=== PATIENT | male | born 1995 ===

== ENCOUNTER 2019-02-17 11:00 | Observation (INO) | payer OTHER ==
[2019-02-17 11:14] VITALS: BMI 28.8
[2019-02-17] MEDS: Sodium Chloride 0.9% 1,000 ML IV SCH ×5 (12:30→23:35)
[2019-02-17 12:35] LABS: HEMOGLOBIN 16.4 g/dL (12.0-18.0); MEAN CELL VOLUME 88.7 fl (80.0-94.0); MEAN CORPUSCULAR HEMOGLOBIN 29.5 pg (27.0-31.0); MEAN CORPUSCULAR HGB CONC 33.2 g/dL (33.0-37.0); RBC 5.55 Mil/uL (4.40-5.90); RED CELL DISTRIBUTION WIDTH 13.4 % (11.5-14.5); WHITE BLOOD COUNT 7.6 K/uL (4.8-10.8)
[2019-02-17 12:55] LABS: ALB/GLOB RATIO 1.6 (1.0-2.1); ALT/SGPT 47 U/L (21-72); AST/SGOT 100 U/L (17-59); BLOOD UREA NITROGEN 11 mg/dl (9-20); CALCIUM 9.3 mg/dL (8.4-10.2); GFR NON-AFRICAN AMERICAN > 60
[2019-02-17 13:47] LABS: URINE BILIRUBIN NEGATIVE (NEGATIVE); URINE BLOOD NEGATIVE (NEGATIVE); URINE CLARITY CLEAR (Clear); URINE COLOR YELLOW (YELLOW); URINE GLUCOSE (UA) NEG (NEGATIVE); URINE LEUKOCYTE ESTERASE NEG Leu/uL (Negative); URINE PROTEIN NEGATIVE (NEGATIVE); URINE UROBILINOGEN 0.2-1.0 mg/dL (0.2-1.0)
--- NOTE | 2019-02-17 14:12 | ED PDOC ---
HPI: General Adult Time Seen by Provider: 02/17/19 11:49 Chief Complaint (Nursing): Flu-like Symptoms Chief Complaint (Provider): Dehydration History Per: Patient History/Exam Limitations: no limitations Onset/Duration Of Symptoms: Days Current Symptoms Are (Timing): Still Present Additional Complaint(s): 23 yo healthy M reports feeling dehydrated for the last 3 days. He states he woke up this morning with diffuse body aches, joint pain, dry mouth, nausea and one episode of vomiting. He states he has felt like this fro 3 days and was drinking lots of water and pedialyte. He has a decrease appetite and feels like he is urinating less. Pt reports he does work out daily, he runs, swims and lifts weight, which he has continued to do the last few days. Pt denies fever, chills, recent travel, URI symptoms, urinary frequency or hematuria, changes in urine color, abdominal pain. PMD: none Past Medical History Reviewed: Historical Data, Nursing Documentation, Vital Signs Vital Signs: Last Vital Signs Temp 97.7 F 02/17/19 11:13 Pulse 70 02/17/19 11:13 Resp 18 02/17/19 11:13 BP 137/83 02/17/19 11:13 Pulse Ox 97 02/17/19 11:13 - Medical History PMH: No Chronic Diseases - Family History Family History: States: No Known Family Hx - Immunization History Hx Tetanus Toxoid Vaccination: No Hx Influenza Vaccination: No Hx Pneumococcal Vaccination: No - Home Medications Home Medications: Ambulatory Orders Medication Instructions Recorded Levocarnitine Tartrate 1 cap PO DAILY 02/17/19 [l-Carnitine] - Allergies Allergies/Adverse Reactions: Allergies Allergy/AdvReac Type Severity Reaction Status Date / Time No Known Allergies Allergy Verified 02/17/19 12:06 Review of Systems Constitutional: Negative for: Fever Respiratory: Negative for: Cough, Shortness of Breath Gastrointestinal: Positive for: Nausea, Vomiting. Negative for: Abdominal Pain Genitourinary Male: Negative for: Dysuria, Frequency, Hematuria Musculoskeletal: Positive for: Other (diffuse body aches) Physical Exam - Reviewed Nursing Documentation Reviewed: Yes Vital Signs Reviewed: Yes - Physical Exam Comments: GENERAL APPEARANCE: Patient is awake, alert, oriented x 3, in no obvious distress. SKIN: Warm, dry; (-) cyanosis. EYES: (-) conjunctival pallor, (-) scleral icterus. ENMT: Mucous membranes moist. NECK: (-) tenderness, (-) stiffness, (-) lymphadenopathy. CHEST AND RESPIRATORY: (-) rales, (-) rhonchi, (-) wheezes; breath sounds equal bilaterally. HEART AND CARDIOVASCULAR: (-) irregularity; (-) murmur, (-) gallop. ABDOMEN AND GI: (-) distention. Bowel sounds active; (-) tendernes. (-) guarding, (-) rebound, (-) palpable masses, (-) CVA tenderness. EXTREMITIES: (-) deformity, (-) edema, (+) distal pulses. (+) diffuse reproducible tenderness to upper and lower extremities NEURO AND PSYCH: Mental status as above; (-) focal findings. - Laboratory Results Result Diagrams: 02/17/19 12:23 02/17/19 12:23 Lab Results: Total Bilirubin 0.5 mg/dl (0.2-1.3) 02/17/19 12:23 AST 100 U/L (17-59) H 02/17/19 12:23 ALT 47 U/L (21-72) 02/17/19 12:23 Alkaline Phosphatase 82 U/L (38-126) 02/17/19 12:23 Total Protein 8.1 G/DL (6.3-8.2) 02/17/19 12:23 Albumin 5.0 g/dL (3.5-5.0) 02/17/19 12:23 Globulin 3.1 gm/dL (2.2-3.9) 02/17/19 12:23 Albumin/Globulin Ratio 1.6 (1.0-2.1) 02/17/19 12:23 Urine Color Yellow (YELLOW) 02/17/19 13:36 Urine Clarity Clear (Clear) 02/17/19 13:36 Urine pH 7.0 (5.0-8.0) 02/17/19 13:36 Ur Specific [place] 1.014 (1.003-1.030) 02/17/19 13:36 Urine Protein Negative mg/dL (NEGATIVE) 02/17/19 13:36 Urine Glucose (UA) Neg mg/dL (NEGATIVE) 02/17/19 13:36 Urine Ketones Negative mg/dL (NEGATIVE) 02/17/19 13:36 Urine Blood Negative (NEGATIVE) 02/17/19 13:36 Urine Nitrate Negative (NEGATIVE) 02/17/19 13:36 Urine Bilirubin Negative (NEGATIVE) 02/17/19 13:36 Urine Urobilinogen 0.2-1.0 mg/dL (0.2-1.0) 02/17/19 13:36 Ur Leukocyte Esterase Neg Rikki/uL (Negative) 02/17/19 13:36 Urine RBC (Auto) 2 /hpf (0-3) 02/17/19 13:36 Urine Microscopic WBC 1 /hpf (0-5) 02/17/19 13:36 - ECG O2 Sat by Pulse Oximetry: 97 Medical Decision Making Medical Decision Makin:55 initial impression 23 yo M with dehydration or rhabdo due to exercise -- labs, including CPK -- IVF -- UA -- Re eval 14:00 pts CPK is elevated to 6,300, likely rhabdomylosis, will continue with IVF and admit for observation pt reports feeling mildly better, nausea is gone and pt is now hungry 14:27 spoke to hospitalist, Dr. Jimenez who accepts pt for continued IVF Discussed results, diagnosis, treatment and plan for observation with pt who is understanding and in agreement Disposition - Clinical Impression Clinical Impression: Rhabdomyolysis - Patient ED Disposition Is Patient to be Admitted: Yes Discussed With : Alyson Jimenez Doctor Will See Patient In The: ED Counseled Patient/Family Regarding: Studies Performed, Diagnosis, Need For Followup - Disposition Disposition Time: 14:30 Condition: STABLE - Pt Status Changed To: Hospital Disposition Of: Observation - POA Present On Arrival: None
--- NOTE | 2019-02-17 14:48 | CP.PCM.HP ---
<Yessica Christine - Last Filed: 02/17/19 15:23> History of Present Illness - History of Present Illness History of Present Illness: Pt is a 23 yo M with no pmh presented to the ED due to muscle aches, dizziness and nausea after a high intensity workout (crossfit and weightlifting) on Sunday. He vomited 15 mins after the workout, he had limited water intake. Sunday he started to have muscle pain, dizziness and nausea. Today his muscle pain progressed to now 6/10 worse with movement, he feels dehydrated, reports B/L knee pain and nausea. Denies fever, chills, chest pain, SOB, hematuria or dysuria. Tolerating oral intake. PMD: none reported Code Status: Full code PMHx: Denies Meds: none Allergies: NKDA Surg hx: Denies Hosp hx: Denies Family hx: Denies Social hx: Alcohol occasionally- last month 4 beers, Joseph tobacco or drug use ED Course: CPK level 6326, U/A- WNL, BUN 11 CR 0.6, IVF's Present on Admission - Present on Admission Any Indicators Present on Admission: No History of DVT/PE: No History of Uncontrolled Diabetes: No Urinary Catheter: No Decubitus Ulcer Present: No Review of Systems - Gastrointestinal Gastrointestinal: Nausea - Musculoskeletal Additional comments: Muscle pain - Neurological Neurological: Dizziness Past Patient History - Past Social History Smoking Status: Never Smoked Alcohol: Occasional (4 beers 1 month ago) Drugs: Denies - PSYCHIATRIC Hx Substance Use: No - ANESTHESIA Hx Anesthesia: No Meds Allergies/Adverse Reactions: Allergies Allergy/AdvReac Type Severity Reaction Status Date / Time No Known Allergies Allergy Verified 02/17/19 12:06 Physical Exam - Constitutional Appears: Non-toxic, No Acute Distress - Head Exam Head Exam: ATRAUMATIC, NORMAL INSPECTION, NORMOCEPHALIC - Eye Exam Eye Exam: EOMI - ENT Exam ENT Exam: Mucous Membranes Moist - Respiratory Exam Respiratory Exam: Clear to Auscultation Bilateral. absent: Rales, Rhonchi, Wheezes - Cardiovascular Exam Cardiovascular Exam: RRR, +S1, +S2 - GI/Abdominal Exam GI & Abdominal Exam: Normal Bowel Sounds, Soft. absent: Tenderness - Extremities Exam Additional comments: Painful but full ROM of upper and lower extremities. Tenderness to palpation of bicep, triceps, thigh muscles. - Neurological Exam Neurological exam: Alert, Oriented x3 Additional comments: Strength and sensation 5/5 UE and LE Results - Vital Signs Recent Vital Signs: Last Vital Signs Temp 97.7 F 02/17/19 11:13 Pulse 70 02/17/19 11:13 Resp 18 02/17/19 11:13 BP 137/83 02/17/19 11:13 Pulse Ox 97 02/17/19 14:27 - Labs Result Diagrams: 02/17/19 12:23 02/17/19 12:23 Labs: Laboratory Results - last 24 hr 02/17/19 02/17/19 02/17/19 12:23 12:23 13:36 WBC 7.6 RBC 5.55 Hgb 16.4 Hct 49.2 MCV 88.7 MCH 29.5 MCHC 33.2 RDW 13.4 Plt Count 240 Sodium 140 Potassium 3.9 Chloride 100 Carbon Dioxide 28 Anion Gap 16 BUN 11 Creatinine 0.6 L Est GFR ( Amer) > 60 Est GFR (Non-Af Amer) > 60 Random Glucose 101 Calcium 9.3 Total Bilirubin 0.5 AST 100 H ALT 47 Alkaline Phosphatase 82 Total Creatine Kinase 6326 H Total Protein 8.1 Albumin 5.0 Globulin 3.1 Albumin/Globulin Ratio 1.6 Urine Color Yellow Urine Clarity Clear Urine pH 7.0 Ur Specific [place] 1.014 Urine Protein Negative Urine Glucose (UA) Neg Urine Ketones Negative Urine Blood Negative Urine Nitrate Negative Urine Bilirubin Negative Urine Urobilinogen 0.2-1.0 Ur Leukocyte Esterase Neg Urine RBC (Auto) 2 Urine Microscopic WBC 1 Assessment & Plan - Assessment and Plan (Free Text) Assessment: Pt is a 23 yo M with no pmh presented to the ED due to muscle aches, dizziness and nausea after a high intensity workout admitted due to Rhabdomyolysis Rhabdomyolysis Observation Medsurg CPK 6326 on admission BUN/CR 11/0.6 U/A WNL IVFs NS @ 250cc/hr Pain control- ibuprofen, zofran Continue to monitor F/u CPK, CBC, CMP in AM Diet Regular DVT PPX SCD <Kaylee Loyd - Last Filed: 02/17/19 16:21> Results - Vital Signs Recent Vital Signs: Last Vital Signs Temp 97.7 F 02/17/19 11:13 Pulse 70 02/17/19 11:13 Resp 18 02/17/19 11:13 BP 137/83 02/17/19 11:13 Pulse Ox 97 02/17/19 14:27 - Labs Result Diagrams: 02/17/19 12:23 02/17/19 12:23 Labs: Laboratory Results - last 24 hr 02/17/19 02/17/19 02/17/19 12:23 12:23 13:36 WBC 7.6 RBC 5.55 Hgb 16.4 Hct 49.2 MCV 88.7 MCH 29.5 MCHC 33.2 RDW 13.4 Plt Count 240 Sodium 140 Potassium 3.9 Chloride 100 Carbon Dioxide 28 Anion Gap 16 BUN 11 Creatinine 0.6 L Est GFR ( Amer) > 60 Est GFR (Non-Af Amer) > 60 Random Glucose 101 Calcium 9.3 Total Bilirubin 0.5 AST 100 H ALT 47 Alkaline Phosphatase 82 Total Creatine Kinase 6326 H Total Protein 8.1 Albumin 5.0 Globulin 3.1 Albumin/Globulin Ratio 1.6 Urine Color Yellow Urine Clarity Clear Urine pH 7.0 Ur Specific [place] 1.014 Urine Protein Negative Urine Glucose (UA) Neg Urine Ketones Negative Urine Blood Negative Urine Nitrate Negative Urine Bilirubin Negative Urine Urobilinogen 0.2-1.0 Ur Leukocyte Esterase Neg Urine RBC (Auto) 2 Urine Microscopic WBC 1 Attending/Attestation - Attestation I have personally seen and examined this patient.: Yes I have fully participated in the care of the patient.: Yes I have reviewed all pertinent clinical information: Yes Notes (Text): Rhabdomyolysis - Pt came bec of pain with movement after intensive workout, denies any other sxs, no hematuria - CPK elevated to 6k - will observe the patient overnight -Aggressive IVF hydration -rpt CPK and BMP in am
[2019-02-18] MEDS: Sodium Chloride 0.9% 1,000 ML IV SCH ×2 (03:14→06:48)
[2019-02-18 06:30] LABS: BASO % 0.3 % (0.0-2.0); EOS # 0.1 K/uL (0.0-0.7); EOS % 1.2 % (0.0-4.0); HEMOGLOBIN 14.3 g/dL (12.0-18.0); LYMPH # 2.7 K/uL (1.0-4.3); LYMPH % 34.9 % (20.0-40.0); MEAN CELL VOLUME 88.9 fl (80.0-94.0); MEAN CORPUSCULAR HEMOGLOBIN 29.3 pg (27.0-31.0); MEAN CORPUSCULAR HGB CONC 32.9 g/dL (33.0-37.0); MEAN PLATELET VOLUME 8.8 fl (7.2-11.7); MONO # 0.6 K/uL (0.0-0.8); MONO % 7.4 % (0.0-10.0); NEUT # 4.4 K/uL (1.8-7.0); NEUT % 56.2 % (50.0-75.0); NRBC % 0.2 % (0.0-0.0); RBC 4.87 Mil/uL (4.40-5.90); RED CELL DISTRIBUTION WIDTH 13.6 % (11.5-14.5); WHITE BLOOD COUNT 7.8 K/uL (4.8-10.8)
[2019-02-18 06:48] LABS: ALB/GLOB RATIO 1.5 (1.0-2.1); ALBUMIN 3.8 g/dL (3.5-5.0); ALT/SGPT 45 U/L (21-72); AST/SGOT 91 U/L (17-59); BLOOD UREA NITROGEN 9 mg/dl (9-20); CALCIUM 8.6 mg/dL (8.4-10.2); GFR NON-AFRICAN AMERICAN > 60
[2019-02-18 07:57] VITALS: BP 135/73; PULSE 77; RESP 18; TEMP 98.1; O2SAT 94
--- NOTE | 2019-02-18 07:59 | CP.PCM.PN ---
Objective - Vital Signs/Intake and Output Vital Signs (last 24 hours): Temp Pulse Resp BP Pulse Ox 98.1 F 77 18 135/73 94 L 02/18/19 07:55 02/18/19 07:55 02/18/19 07:55 02/18/19 07:55 02/18/19 07:55 - Medications Medications: Current Medications Sodium Chloride (Sodium Chloride 0.9%) 1,000 mls @ 250 mls/hr IV .Q4H MYLENE Last Admin: 02/18/19 06:48 Dose: 250 mls/hr Ibuprofen (Motrin Tab) 600 mg PO Q6 PRN PRN Reason: Pain, moderate (4-7) - Labs Labs: 02/18/19 06:10 02/18/19 06:10
--- NOTE | 2019-02-18 08:07 | CP.PCM.DIS ---
<JaimesarahYessica - Last Filed: 02/18/19 10:03> Provider - Provider Date of Admission: 02/17/19 14:32 Attending physician: Alyson Jimenez MD Primary care physician: None Time Spent in preparation of Discharge (in minutes): 10 Diagnosis - Discharge Diagnosis (1) Rhabdomyolysis Status: Acute Comment: Acute, resolving, no muscle pain. BUN/CR stable. CK trending down now 5615 from 6326. Keep hydrated. F/u with [facility] in 1 week for repeat CK and Renal fxn labs Hospital Course - Lab Results Lab Results: Most Recent Lab Values WBC 7.8 K/uL (4.8-10.8) 02/18/19 06:10 RBC 4.87 Mil/uL (4.40-5.90) 02/18/19 06:10 Hgb 14.3 g/dL (12.0-18.0) D 02/18/19 06:10 Hct 43.3 % (35.0-51.0) 02/18/19 06:10 MCV 88.9 fl (80.0-94.0) 02/18/19 06:10 MCH 29.3 pg (27.0-31.0) 02/18/19 06:10 MCHC 32.9 g/dL (33.0-37.0) L 02/18/19 06:10 RDW 13.6 % (11.5-14.5) 02/18/19 06:10 Plt Count 226 K/uL (130-400) 02/18/19 06:10 MPV 8.8 fl (7.2-11.7) 02/18/19 06:10 Neut % (Auto) 56.2 % (50.0-75.0) 02/18/19 06:10 Lymph % (Auto) 34.9 % (20.0-40.0) 02/18/19 06:10 [place] % (Auto) 7.4 % (0.0-10.0) 02/18/19 06:10 Eos % (Auto) 1.2 % (0.0-4.0) 02/18/19 06:10 Baso % (Auto) 0.3 % (0.0-2.0) 02/18/19 06:10 Neut # (Auto) 4.4 K/uL (1.8-7.0) 02/18/19 06:10 Lymph # (Auto) 2.7 K/uL (1.0-4.3) 02/18/19 06:10 [place] # (Auto) 0.6 K/uL (0.0-0.8) 02/18/19 06:10 Eos # (Auto) 0.1 K/uL (0.0-0.7) 02/18/19 06:10 Baso # (Auto) 0.0 K/uL (0.0-0.2) 02/18/19 06:10 Sodium 138 mmol/l (132-148) 02/18/19 06:10 Potassium 3.9 MMOL/L (3.6-5.0) 02/18/19 06:10 Chloride 104 mmol/L (98-107) 02/18/19 06:10 Carbon Dioxide 29 mmol/L (22-30) 02/18/19 06:10 Anion Gap 9 (10-20) L 02/18/19 06:10 BUN 9 mg/dl (9-20) 02/18/19 06:10 Creatinine 0.7 mg/dl (0.8-1.5) L 02/18/19 06:10 Est GFR ( Amer) > 60 02/18/19 06:10 Est GFR (Non-Af Amer) > 60 02/18/19 06:10 Random Glucose 89 mg/dL (75-110) 02/18/19 06:10 Calcium 8.6 mg/dL (8.4-10.2) 02/18/19 06:10 Total Bilirubin 0.4 mg/dl (0.2-1.3) 02/18/19 06:10 AST 91 U/L (17-59) H 02/18/19 06:10 ALT 45 U/L (21-72) 02/18/19 06:10 Alkaline Phosphatase 65 U/L (38-126) 02/18/19 06:10 Total Creatine Kinase 5615 U/L (55-170) H 02/18/19 06:10 Total Protein 6.3 G/DL (6.3-8.2) 02/18/19 06:10 Albumin 3.8 g/dL (3.5-5.0) 02/18/19 06:10 Globulin 2.5 gm/dL (2.2-3.9) 02/18/19 06:10 Albumin/Globulin Ratio 1.5 (1.0-2.1) 02/18/19 06:10 Urine Color Yellow (YELLOW) 02/17/19 13:36 Urine Clarity Clear (Clear) 02/17/19 13:36 Urine pH 7.0 (5.0-8.0) 02/17/19 13:36 Ur Specific [place] 1.014 (1.003-1.030) 02/17/19 13:36 Urine Protein Negative mg/dL (NEGATIVE) 02/17/19 13:36 Urine Glucose (UA) Neg mg/dL (NEGATIVE) 02/17/19 13:36 Urine Ketones Negative mg/dL (NEGATIVE) 02/17/19 13:36 Urine Blood Negative (NEGATIVE) 02/17/19 13:36 Urine Nitrate Negative (NEGATIVE) 02/17/19 13:36 Urine Bilirubin Negative (NEGATIVE) 02/17/19 13:36 Urine Urobilinogen 0.2-1.0 mg/dL (0.2-1.0) 02/17/19 13:36 Ur Leukocyte Esterase Neg Rikki/uL (Negative) 02/17/19 13:36 Urine RBC (Auto) 2 /hpf (0-3) 02/17/19 13:36 Urine Microscopic WBC 1 /hpf (0-5) 02/17/19 13:36 - Hospital Course Hospital Course: Pt is a 23 yo M with no pmh presented to the ED due to muscle aches, dizziness and nausea after a high intensity workout (crossfit and weightlifting) on 02/15/19. He vomited 15 mins after the workout, he had limited water intake. 02/16/19 he started to have muscle pain, dizziness and nausea. ED Course: CPK level 6326, U/A- WNL, BUN 11 CR 0.6, IVF's. AST 100/ ALT 47- possibly 2/2 to alcohol pt reported no alcohol intake for 1 month prior, trending down today, AST 91, ALT 45. Today pt reports his muscle pain has resolved completely, hemodynamically stable, Renal function stable, CPK 5615. Tolerating oral intake. Pt is stable for discharge, instructed to keep well hydrated, and to follow up outpt at the [facility] in 1 week to get a repeat CPK level and renal labs. Discharge Exam - Head Exam Head Exam: ATRAUMATIC, NORMAL INSPECTION, NORMOCEPHALIC - ENT Exam ENT Exam: Mucous Membranes Moist - Respiratory Exam Respiratory Exam: Clear to PA & Lateral. absent: Rales, Rhonchi, Wheezes - Cardiovascular Exam Cardiovascular Exam: RRR, +S1, +S2 - GI/Abdominal Exam GI & Abdominal Exam: Normal Bowel Sounds, Soft. absent: Tenderness - Extremities Exam Extremities exam: full ROM, normal inspection - Neurological Exam Neurological exam: Alert, Oriented x3 Discharge Plan - Follow Up Plan Condition: STABLE Disposition: HOME/ ROUTINE Instructions: Rhabdomyolysis (DC) Additional Instructions: follow up with your primary MD 1 week emailed Maria Alejandra to call pt Referrals: [facility] [Outside] <Kaylee Loyd - Last Filed: 02/18/19 13:46> Provider - Provider Date of Admission: 02/17/19 14:32 Attending physician: Alyson Jimenez MD Hospital Course - Lab Results Lab Results: Most Recent Lab Values WBC 7.8 K/uL (4.8-10.8) 02/18/19 06:10 RBC 4.87 Mil/uL (4.40-5.90) 02/18/19 06:10 Hgb 14.3 g/dL (12.0-18.0) D 02/18/19 06:10 Hct 43.3 % (35.0-51.0) 02/18/19 06:10 MCV 88.9 fl (80.0-94.0) 02/18/19 06:10 MCH 29.3 pg (27.0-31.0) 02/18/19 06:10 MCHC 32.9 g/dL (33.0-37.0) L 02/18/19 06:10 RDW 13.6 % (11.5-14.5) 02/18/19 06:10 Plt Count 226 K/uL (130-400) 02/18/19 06:10 MPV 8.8 fl (7.2-11.7) 02/18/19 06:10 Neut % (Auto) 56.2 % (50.0-75.0) 02/18/19 06:10 Lymph % (Auto) 34.9 % (20.0-40.0) 02/18/19 06:10 [place] % (Auto) 7.4 % (0.0-10.0) 02/18/19 06:10 Eos % (Auto) 1.2 % (0.0-4.0) 02/18/19 06:10 Baso % (Auto) 0.3 % (0.0-2.0) 02/18/19 06:10 Neut # (Auto) 4.4 K/uL (1.8-7.0) 02/18/19 06:10 Lymph # (Auto) 2.7 K/uL (1.0-4.3) 02/18/19 06:10 [place] # (Auto) 0.6 K/uL (0.0-0.8) 02/18/19 06:10 Eos # (Auto) 0.1 K/uL (0.0-0.7) 02/18/19 06:10 Baso # (Auto) 0.0 K/uL (0.0-0.2) 02/18/19 06:10 Sodium 138 mmol/l (132-148) 02/18/19 06:10 Potassium 3.9 MMOL/L (3.6-5.0) 02/18/19 06:10 Chloride 104 mmol/L (98-107) 02/18/19 06:10 Carbon Dioxide 29 mmol/L (22-30) 02/18/19 06:10 Anion Gap 9 (10-20) L 02/18/19 06:10 BUN 9 mg/dl (9-20) 02/18/19 06:10 Creatinine 0.7 mg/dl (0.8-1.5) L 02/18/19 06:10 Est GFR ( Amer) > 60 02/18/19 06:10 Est GFR (Non-Af Amer) > 60 02/18/19 06:10 Random Glucose 89 mg/dL (75-110) 02/18/19 06:10 Calcium 8.6 mg/dL (8.4-10.2) 02/18/19 06:10 Total Bilirubin 0.4 mg/dl (0.2-1.3) 02/18/19 06:10 AST 91 U/L (17-59) H 02/18/19 06:10 ALT 45 U/L (21-72) 02/18/19 06:10 Alkaline Phosphatase 65 U/L (38-126) 02/18/19 06:10 Total Creatine Kinase 5615 U/L (55-170) H 02/18/19 06:10 Total Protein 6.3 G/DL (6.3-8.2) 02/18/19 06:10 Albumin 3.8 g/dL (3.5-5.0) 02/18/19 06:10 Globulin 2.5 gm/dL (2.2-3.9) 02/18/19 06:10 Albumin/Globulin Ratio 1.5 (1.0-2.1) 02/18/19 06:10 Urine Color Yellow (YELLOW) 02/17/19 13:36 Urine Clarity Clear (Clear) 02/17/19 13:36 Urine pH 7.0 (5.0-8.0) 02/17/19 13:36 Ur Specific [place] 1.014 (1.003-1.030) 02/17/19 13:36 Urine Protein Negative mg/dL (NEGATIVE) 02/17/19 13:36 Urine Glucose (UA) Neg mg/dL (NEGATIVE) 02/17/19 13:36 Urine Ketones Negative mg/dL (NEGATIVE) 02/17/19 13:36 Urine Blood Negative (NEGATIVE) 02/17/19 13:36 Urine Nitrate Negative (NEGATIVE) 02/17/19 13:36 Urine Bilirubin Negative (NEGATIVE) 02/17/19 13:36 Urine Urobilinogen 0.2-1.0 mg/dL (0.2-1.0) 02/17/19 13:36 Ur Leukocyte Esterase Neg Rikki/uL (Negative) 02/17/19 13:36 Urine RBC (Auto) 2 /hpf (0-3) 02/17/19 13:36 Urine Microscopic WBC 1 /hpf (0-5) 02/17/19 13:36 Attending/Attestation - Attestation I have personally seen and examined this patient.: Yes I have fully participated in the care of the patient.: Yes I have reviewed all pertinent clinical information, including history, physical exam and plan: Yes Notes (Text): Rhabdomyolysis - Pt came bec of pain with movement after intensive workout, denies any other sxs, no hematuria - CPK elevated to 6k now down to 5k, VCReatinine remains normal - observed the patient overnight - his body aches resolved , tolerating PO diet -Aggressive IVF hydration -will d/c home , pt will continue to have increase Oral fluid intake - he will ff up nect wk for rpt CPK and BMP in the FP clinic
[2019-02-18] MEDS ORDERED: Sodium Chloride 0.9% 1,000 ML IV SCH (08:15)
== END 2019-02-18 10:20 | disposition home or self-care (01) ==
LOC: H.ER 11:00 → H.ERHOLD 14:32 → H.MEDSURG1 16:45
PROVIDERS: ADMIT Hospitalist; ATTEND Hospitalist
DX: M62.82 Rhabdomyolysis (principal)
CPT/HCPCS: 36415; 80053; 81003; 82550; 85025; 85027; 96374; 99285; G0378; J2405; J7030